=== PATIENT | female | born 1950 | race Caucasian/White ===

== ENCOUNTER 2020-01-24 12:58 | Emergency (ER) | payer MEDICARE, MEDICAID, SELFPAY ==
[2020-01-24 13:15] VITALS: BP 145/56; PULSE 77; RESP 16; TEMP 36.8; O2SAT 98
--- NOTE | 2020-01-24 14:27 | ED.URI ---
HPI - URI/Sore Throat General Chief Complaint: Upper Respiratory Infection Stated Complaint: Chest congestion/Cough Time Seen by Provider: 01/24/20 14:27 Source: patient Mode of arrival: ambulatory Limitations: no limitations History of Present Illness HPI Narrative: 69 year old female who presents to [facility] care with 3 day history of cough which is dry and some mid chest discomfort with cough. Patient denies any sore throat, ear pain, fevers or any acute shortness of breath or noted wheezing. Patient states that she has not taken any OTC medications for her cough, reports flu vaccine 2019. Patient states that she has had history of bronchitis and thinks that is what she may be experiencing. Patient has history of tobacco abuse of 1ppd for 40 years. MD elicited complaint: cough Pertinent past history: other (bronchitis, tobacco abuse) Onset (ago): day(s) Consistency: constant Severity: moderate Able to tolerate fluids by mouth: Yes Exacerbating factors: exertion and deep breaths Relieving factors: nothing Context: sick contacts Associated symptoms: cough and chest pain (mid chest with cough) Treatments prior to arrival: none Related Data Home Medications Medication Instructions Recorded Confirmed amlodipine 10 mg PO DAILY 01/24/20 01/24/20 atorvastatin 40 mg PO DAILY 01/24/20 01/24/20 carvedilol 6.25 mg PO BID 01/24/20 01/24/20 lisinopril 10 mg PO BID 01/24/20 01/24/20 metformin 1,000 mg PO BID 01/24/20 01/24/20 sertraline [Zoloft] 100 mg PO DAILY 01/24/20 01/24/20 Allergies Allergy/AdvReac Type Severity Reaction Status Date / Time Sulfa (Sulfonamide Allergy Rash Verified 01/24/20 13:27 Antibiotics) Review of Systems Review of Systems: Narrative: CONSTITUTIONAL: Denies fever, chills, or sweats. EYES: Denies visual changes, redness, or discharge. ENT: Denies rhinorrhea, congestion, sore throat, or otalgia. CARDIOVASCULAR: reports mid chest pain with cough, denies any palpitations, or edema. RESPIRATORY: Positive cough denies dyspnea. GASTROINTESTINAL: Denies abdominal pain, nausea, vomiting, or diarrhea. GENITOURINARY: Denies dysuria or hematuria. SKIN: Denies rash or itching. MUSCULOSKELETAL: Denies back pain, joint pain, or myalgia. NEUROLOGIC: Denies headache, numbness, or weakness. PSYCHIATRIC: Denies anxiety or depression. All systems reviewed & are unremarkable except as noted in HPI and below PMFSH Past Medical History Medical History (Updated 01/27/20 @ 12:09 by Ying Bond NP) Bronchitis Diabetes Fibroid uterus Hyperlipidemia Hypertension Surgical History Surgical History (Updated 01/27/20 @ 12:09 by Ying Bond NP) H/O: hysterectomy Social History Social History (Updated 01/27/20 @ 12:09 by Ying Bond NP) Smoking packs per day: 1 Smoking cigarettes per day: 20.0 Years smoked: 40 Smoking pack-years: 40.00 Smoking status: Current every day smoker Tobacco type: cigarettes Living arrangements: with family Gender identity (if verbalized by the patient): Female Comments At time of signature, agree with nursing past medical, surgical, social and family history. There is no relevant family history pertinent to the presenting complaint Exam Narrative: Exam Narrative: GENERAL: Well-appearing, well-nourished, and in no acute distress. HEAD: Normocephalic, atraumatic. EYES: PERRLA and EOMI. ENT: Nares clear, no rhinorrhea or epistaxis. Mucous membranes moist.TM's normal with adequate light reflex, throat pink with no lesions or exudates, no tonsil swelling or redness. NECK: Supple.no lymphadenopathy CHEST: Diminished to auscultation. No respiratory distress. dry cough, SAO2 98% on room air. HEART: Regular rate and rhythm. No murmur heard. Normal peripheral pulses. ABDOMEN: Soft, nontender, nondistended, normal active bowel sounds. EXTREMITIES: Normal range of motion. No edema. SKIN: Warm, dry, no rash. NEURO: No focal deficits. Alert and oriented x3.
== END 2020-01-24 14:46 | disposition home or self-care (01) ==
PROVIDERS: Emergency Provider Registered Nurse
DX: J06.9 Acute upper respiratory infection, unspecified (principal); E11.9 Type 2 diabetes mellitus without complications; E78.5 Hyperlipidemia, unspecified; I10 Essential (primary) hypertension; F17.210 Nicotine dependence, cigarettes, uncomplicated
CPT/HCPCS: 99203; G0463

== ENCOUNTER 2023-02-13 17:19 | Emergency (ER) | payer MEDICARE, MEDICAID, SELFPAY ==
--- NOTE | 2023-02-13 17:21 | ED.SKABFB ---
HPI - Skin/Abscess/Foreign Bdy General Chief complaint: Skin/Abscess/Foreign Body Stated complaint: Skin Sore Time Seen by Provider: 02/13/23 17:21 Source: patient and RN notes reviewed History of Present Illness HPI narrative: Patient is a 72-year-old female presents to urgent care with complaints of a skin sore on her back as well as a cough and sinus congestion. Patient states that the cough has been ongoing for approximately 1 week in conjunction with the sinus congestion. Patient has been taking DayQuil, NyQuil and using cough drops. States that the sore in her back is been there for approximately 2 weeks and she has been using Neosporin. Patient states her has squeezed on the abscess. Denies any fevers above 99 F, nausea vomiting. No other acute complaints. No acute distress noted. Patient aware of the plan care. Some parts of this dictation were generated by voice recognition software and may contain typographical and/or grammatical inaccuracies. Related Data Home Medications Medication Instructions Recorded Confirmed carvedilol 6.25 mg tablet 6.25 mg PO BID 01/24/20 02/13/23 lisinopril 10 mg tablet 10 mg PO BID 01/24/20 02/13/23 atorvastatin 80 mg tablet 80 mg PO DIRECTED 02/13/23 02/13/23 insulin regular hum U-500 conc 500 230 unit subcut DIRECTED 02/13/23 02/13/23 unit/mL(3 mL) subcut pen (Humulin R U-500 (Conc) Insulin Kwikpen) lisinopril 20 tablet 02/13/23 mg-hydrochlorothiazide 12.5 mg tablet venlafaxine 150 mg 150 mg PO DIRECTED 02/13/23 02/13/23 capsule,extended release 24 hr Allergies Allergy/AdvReac Type Severity Reaction Status Date / Time Sulfa (Sulfonamide Allergy Rash Verified 02/13/23 17:36 Antibiotics) Review of Systems Review of Systems: CONSTITUTIONAL: Denies fever, chills, or sweats. EYES: Denies visual changes, redness, or discharge. ENT: Reports rhinorrhea, sinus congestion postnasal drainage CARDIOVASCULAR: Denies chest pain, palpitations, or edema. RESPIRATORY: Reports cough without dyspnea GASTROINTESTINAL: Denies abdominal pain, nausea, vomiting, or diarrhea. GENITOURINARY: Denies dysuria or hematuria. SKIN: Reports of a skin sore to the back MUSCULOSKELETAL: Denies back pain, joint pain, or myalgia. NEUROLOGIC: Denies headache, numbness, or weakness. PSYCHIATRIC: Denies anxiety or depression. All other systems reviewed are negative, except as documented in HPI. [facility] Past Medical History Medical History (Updated 02/13/23 @ 17:52 by JORGE Ulloa) Bronchitis Diabetes Fibroid uterus Hyperlipidemia Hypertension Surgical History Surgical History (Updated 01/27/20 @ 12:09 by Ying Bond NP) H/O: hysterectomy Social History Social History (Updated 01/27/20 @ 12:09 by Ying Bond NP) Smoking packs per day: 1 Smoking cigarettes per day: 20.0 Years smoked: 40 Smoking pack-years: 40.00 Smoking status: Current every day smoker Tobacco type: cigarettes Living arrangements: with family Gender identity (if verbalized by the patient): Female Comments At the time of my signature, I reviewed and agree with the nursing past medical, surgical, social, and family history. There is no relevant family history pertinent to the patient complaint. Exam Narrative: GENERAL: This is a well-nourished, well-developed patient, in no apparent distress. HEAD: normocephalic, atraumatic. Reported frontal sinus tenderness EYES: PERRL. Sclera clear/white. Vision is grossly intact. EARS: External ears normal, auditory canals clear and without drainage, TMs normal without perforation. Hearing grossly intact. NOSE: External nose normal with no obvious nasal discharge, nares without redness, clear rhinorrhea. THROAT: Mucous membranes moist, posterior pharynx clear. Moderate postnasal drainage NECK: Neck supple CARDIOVASCULAR: Regular rate and rhythm RESPIRATORY: Clear to auscultation. Breath sounds equal bilaterally. No
[2023-02-13 17:28] VITALS: BP 150/61; PULSE 91; RESP 20; TEMP 36.3; O2SAT 99
== END 2023-02-13 17:55 | disposition home or self-care (01) ==
PROVIDERS: Emergency Provider Nurse Practitioner Family; PCP Internal Medicine
DX: L02.212 Cutaneous abscess of back [any part, except buttock and flank] (principal); J00 Acute nasopharyngitis [common cold]; F17.210 Nicotine dependence, cigarettes, uncomplicated; E11.9 Type 2 diabetes mellitus without complications; Z79.4 Long term (current) use of insulin; E78.5 Hyperlipidemia, unspecified; I10 Essential (primary) hypertension
CPT/HCPCS: 99213; G0463

== ENCOUNTER 2024-10-24 15:23 | Emergency (ER) | payer MEDICARE, SELFPAY ==
--- NOTE | ~2024-10-24 | XR_ITS ---
XR chest 2V 10/24/2024 16:49 Indication: Pneumonia Procedure: 2 view chest Comparison: No prior studies for comparison. Findings: Heart size normal. No focal air space disease, pulmonary edema, pleural effusion or suspect ed pneumothorax. There is dextroscoliosis. Impression: 1: No acute cardiopulmonary disease. Reviewed, dictated and finalized at location B. AL SALES EXECUTIVE Impression: 1: No acute cardiopulmonary disease.
--- OUTSIDE RECORDS SUMMARY | 2024-10-24 15:26 | XMS_ITS ---
Author Organization [facility] Address [address] [place] [address] Phone Care Team Providers Care Pneumatic Tube Fitter Name Role Phone RUTH AUGUSTINE MD Primary Care Provider [phone] Plan of Treatment Referrals To [facility] - [address] [place] [address] - Spondylosis w/o myelopathy or radiculopathy, lumbar region Note: consent for bilateral L3, L,4 L5 medial branch blocks Last Documented On 4 10:07AM ; [facility] Assessments Includes: Assessments for all patient encounters Findings Encounter Date Arthralgia of bilateral shou lder region PAIN MANAGEMENT NEW CONSULT with SERGE PARNELL ANP-BC 07/04/2022 Last Documented On 2 5:14PM ; [facility] Arthralgia of the left knee/patella/tibia/fibula PAIN MANAGEMENT NEW CONSULT with SERGELEW PARNELL ANP-BC 07/04/2022 Last Documented On 2 5:14PM ; [facility] Chronic pain syndrome PAIN MANAGEMENT NE W CONSULT with SERGELEW PARNELL ANP-BC 07/04/2022 Last Documented On 2 5:14PM ; [facility] Lumbar spondylosis without m yelopathy or radiculopathy PAIN MANAGEMENT NEW CONSULT with SERGE Arthur GEES ANP-BC 07/04/2022 Last Documented On 2 5:14PM ; [facility] Myalgia PAIN MANAGEMENT NEW CONSULT with SERGE Arthur GEES ANP-BC 07/04/2022 Last Documented On 2 5:14PM ; [facility] Polyarthropathy of multiple sites PAIN M ANAGEMENT NEW CONSULT with SERGE JARRELL 07/04/2022 Last Documented On 2 5:14PM ; [facility] Type 2 diabetes with diabeti c polyneuropathy PAIN MANAGEMENT [facility] Last Documented On 2 5:14PM ; [facility] Medical Equipment - Implanted Devices Includes: Current and historical Devices No Medical Equipment Recorded Medications Includes: Current and historical Medications Current Medications (continue as prescribed) Pregabalin 100 MG Oral Capsule 07/04/2022 Provider: SERGE JARRELL Diagnosis: Type 2 diabetes mellitus with diabetic polyneuropathy 1 CAPSULE TWO TIMES A DAY Last Documented On 2 3:21PM [facility] ; [facility] Venlafaxine HCl ER 150 MG Or al Capsule Extended Release 24 Hour 06/17/2022 Provider: FREDI MEDEROS NP Diagnosis: Last Documented On 07/04/2022 2:09PM By Brenda SALDANA ; [facility] HumuLIN R U-500 KwikPen 500 UNIT/ML Subcutaneous Solution Pen-injector 06/06/2022 Provider: YESIKA NELSON MD Diagnosis: Last Documented On 07/04/2022 2:10PM By Brenda SALDANA ; [facility] TRUEplus Pen [place] 32G X 4 MM Miscellaneous 04/30/20 Provider: YESIKA NELSON MD Diagnosis: Last Documented On 07/04/2022 2:10PM By Brenda SALDANA ; [facility] Atorvastatin Calcium 80 MG Oral Tablet 04/07/2022 Pr ovider: RUTH AUGUSTINE MD Diagnosis: Last Documented On 07/04/2022 2:10PM By Brenda SALDANA ; [facility] Lisinopril-hydroCHLOROthiazi de 20-12.5 MG Oral Tablet 04/07/2022 Provider: RUTH AUGUSTINE MD Diagnosis: Last Documented On 07/04/2022 2:10PM By Brenda SALDANA ; [facility] amLODIPine Besylate 10 MG Oral Tablet 04/06/2022 Pro vider: RUTH AUGUSTINE MD Diagnosis: Last Documented On 07/04/2022 2:10PM By Brenda SALDANA ; [facility] Ventolin HFA 108 (90 Base) M CG/ACT Inhalation Aerosol Solution 03/31/2022 Provider: RUTH AUGUSTINE MD Diagnosis: Last Documented On 07/04/2022 2:10PM By Brenda SALDANA ; [facility] Pregabalin 50 MG Oral Capsule 03/24/2022 Provider: YESIKA NELSON MD Diagnosis: Last Documented On 07/04/2022 2:11PM By Brenda SALDANA ; [facility] Medications Administered Includes: Administered Medications in patient's chart No Administered Medications Recorded Results Includes: Results from 10/24/2023 through 10/24/2024 No Results Recorded For Specified Dates History of Present Illness History of Present Illness not supported for this document type No History of Present Illness Recorded Social History Description Last Updated Difficulty walking 07/04/2022 Last Documented On 2 5:14PM ; [facility] No consumption of alcohol 07/04/2022 Last Documented On 2 5:14PM ; [facility] Not using drugs 07/04/2022 Last Documented On 2 5:14PM ; [facility] Smoking packs of cigarettes per day One 07/04/2022 Last Documented On 2 5:14PM ; [facility] Smoking Status Unknown Medical History Includes: Medical History in patient's chart Description Last Updated Currently wearing eyeglasses 07/04/2022 Last Documented On 2 5:14PM ; [facility] Severe Pain 07/04/2022 Last Documented On 2 5:14PM ; [facility] Family History Includes: Family History in patient's chart Description Last Updated Paternal history of family history of is chemic heart disease 07/04/2022 Last Documented On 2 5:14PM ; [facility] Review of Systems Review of Systems not supported for this document type No Review of Systems Recorded Mental Status No Mental Status Recorded Functional Status No Functional Status Recorded Physical Exam Physical Exam not supported for this document type No Physical Exam Recorded Allergies Includes: Active, inactive, and resolved Allergies Substance Type Reaction Onset Date Resolved Date Statu s Sulfa Antibiotics Allergy 07/04/2022 A ctive Last Documented On 2 2:12PM ; [facility] Insurance Includes: Active Insurance Policies Plan Name Member ID Group # Subscriber Relationship Effect cecile Dates 1 - [facility] [id number] REID PEDRO Self Clinical Notes Includes: Signed Clinical Notes starting from 12/02/2022 No Clinical Notes Recorded
--- OUTSIDE RECORDS SUMMARY | 2024-10-24 15:26 | XMS_ITS | Clinical Summary ---
Author Organization [facility] Address [address] [place] [address] Phone Care Team Providers Care Aerodynamic Consultant Name Role Phone RUTH AUGUSTINE MD Primary Care Provider [phone] Reason for Visit and Chief Complaint The Chief Complaint is: REFERRED BY RUTH AUGUSTINE FOR Polyosteoarthritis Plan of Treatment Referrals To Diagnosis Pain Management [facility] - [address] [place] [address] - Spondylosis w/o myelopathy or radiculopathy, lumbar region Note: consent for bilateral L3, L,4 L5 medial branch blocks Last Documented On 10:07AM ; [facility] Assessments Includes: Assessments from this encounter Findings - Type 2 diabetes with diabetic polyneuropathy [E11.42 - Type 2 diabetes mellitus with diabetic polyneuropathy] - Last Documented On 07/04/2022 5:14PM ; [facility] - Polyarthropathy of multiple sites [M13.0 - Polyarthritis, unspecified] - Last Documented On 07/04/2022 5:14PM ; [facility] - Arthralgia of bilateral shoulder region [M25.519 - Pain in unspecified shoulder] - Last Documented On 07/04/2022 5:14PM ; [facility] - Arthralgia of the left knee/patella/tibia/fibula [M25.562 - Pain in left knee] - Last Documented On 07/04/2022 5:14PM ; [facility] - Lumbar spondylosis without myelopathy or radiculopathy [M47.816 - Spondylosis without myelopathy or radiculopathy, lumbar region] - Last Documented On 07/04/2022 5:14PM ; [facility] - Myalgia [M79.18 - Myalgia, other site] - Last Documented On 07/04/2022 5:14PM ; [facility] - Chronic pain syndrome [G89.4 - Chronic pain syndrome] - Last Documented On 07/04/2022 5:14PM ; [facility] Medical Equipment - Implanted Devices Includes: Current Devices No Medical Equipment Recorded Medications Includes: Medications discussed during this encounter and other current Medications New / Renewed during this visit SERGE ASHLEY on 07/04/2022 Pregabalin 100 MG Oral Capsule Provider: SERGE ASHLEY 30 day supply: 60 capsule, 0 refills Diagnosis: Type 2 diabetes mellitus with diabetic polyneuropathy 1 CAPSULE TWO TIMES A DAY Pharmacy: Enrique HarrellJoseph) - [facility] [address] [place], [phone] - Last Documented On 3:21PM By SERGE ASHLEY ; [facility] Current Medications (continue as prescribed) Venlafaxine HCl ER 150 MG Or al Capsule Extended Release 24 Hour 06/17/2022 Provider: FREDI MEDEROS NP Diagnosis: Last Documented On 07/04/2022 2:09PM By Brenda SALDANA ; [facility] HumuLIN R U-500 KwikPen 500 UNIT/ML Subcutaneous Solution Pen-injector 06/06/2022 Provider: YESIKA NELSON MD Diagnosis: Last Documented On 07/04/2022 2:10PM By Brenda SALDANA ; [facility] TRUEplus Pen [place] 32G X 4 MM Miscellaneous 04/30/20 Provider: YESIKA NELSON MD Diagnosis: Last Documented On 07/04/2022 2:10PM By Brenda SALDANA ; [facility] Atorvastatin Calcium 80 MG Oral Tablet 04/07/2022 Pr ovider: RUTH AUGUSTINE MD Diagnosis: Last Documented On 07/04/2022 2:10PM By Brenda SALDANA ; [facility] Lisinopril-hydroCHLOROthiazi de 20-12.5 MG Oral Tablet 04/07/2022 Provider: RUTH AUGUSTINE MD Diagnosis: Last Documented On 07/04/2022 2:10PM By Brenda SALDANA ; [facility] amLODIPine Besylate 10 MG Oral Tablet 04/06/2022 Pro vider: RUTH AUGUSTINE MD Diagnosis: Last Documented On 07/04/2022 2:10PM By Brenda SALDANA ; [facility] Ventolin HFA 108 (90 Base) M CG/ACT Inhalation Aerosol Solution 03/31/2022 Provider: RUTH AUGUSTINE MD Diagnosis: Last Documented On 07/04/2022 2:10PM By Brenda SALDANA ; [facility] Pregabalin 50 MG Oral Capsule 03/24/2022 Provider: YESIKA NELSON MD Diagnosis: Last Documented On 07/04/2022 2:11PM By Brenda SALDANA ; [facility] Medications Administered Includes: Administered Medications from this encounter No Administered Medications Recorded Vital Signs Includes: Vital Signs from this encounter Vital Name 07/04/2022 02:05P Blood Pressure Sitting L 118/60 Pulse Rate-Sitting (bpm) 74 Temp-Tympanic (F) 96.2 Height (in) 67 Weight (lb) 242 Body Mass Index (kg/m2) 37.9 Body Surface Area (m2) 2.2 Pain Level 9 Oxygen Saturation (%) 97 Last Documented: On 07/04/2022 2:09PM ; [facility] Results Includes: Results discussed during this encounter No Results Recorded For Specified Dates History of Present Illness Includes: History of Present Illness from this encounter HPI - Allergy list reviewed - Problem list reviewed - Medication reconciliation performed - Medication list reviewed - Prescription Drug Monitoring Program website checked. - Last dose of medication? - Pain comes/goes - Primary pain location Back legs neck - Primary pain duration All the time - Secondary pain duration All the time - Secondary pain location Knees ankles shoulders - Pain is throbbing - Pain is dull, aching - Relieved by leaning forward - Pain aggravated getting in/out of car - Pain aggravated going down stairs - Pain aggravated going up stairs - Pain aggravated sitting - Pain aggravated standing - Pain aggravated when out of chair - Pain aggravated by walking - Pain aggravated lifting - Pain aggravated bending - Pain radiating to both shoulders - Neck pain radiating to both sides - Abdominal pain radiates to both sides - Groin pain radiating to both sides - Pain radiates in both hands - Pain radiates to both forearms - Radiating pain in upper arms - Pain radiating in both thighs - Pain radiates in both calfs/shins - Pain radiates in both feet Discussion: Patient referred for chronic pain related to osteoarthritis. She complains of chronic low back pain, mainly axial in nature. This is worse with standing more than 5-10 minutes and improves with rest. She reports symptoms consistent with peripheral neuropathy in both the hands and feet. History of diabetes, reportedly not well controlled. She is under the care of an legislative analyst. She has polyarthropathy including the shoulders and knees, L>R. Right knee replaced in 2010 and is minimally painful. Shoulder pain is with overhead activity, not constant. She reports minimal treatment overall for pain. Therapy done briefly for shoulder pain, but stopped and she reports it wasn't helpful. She has not had treatment for other complaints other than previous prescription of hydrocodone. This was prescribed by pcp until about a year ago. Medication was discontinued due to an inappropriate drug screen (per patient account). She reports being out of pain medication and taking something a friend gave her. She states she would take extras from time to time when she was more active and pain was worse. We discussed dangers associated with this behavior. I will request drug screens from pcp office. At this time, I will not initiate pain medication. We discussed if this was to become part of the treatment plan, there would be strict monitoring and she must take only as prescribed and with no other pain medication. Any deviation from this would result in the same consequence she experienced with her pcp. However, at this time we will start with therapy and increase dose of pregabalin. She can increase tylenol to 1000mg tid. We will also treat the low back pain with a series of two MBB with progression to RF ablation based on response. I suggest she attempt therapy, but the amount of disability this pain is causing the patient requires treatment with more than physical therapy. 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 I have fully answered her questions today. Imaging: All relevant imaging available was personally reviewed with the patient today with the following tests and results noted: X-ray L spine 04/18/22: multilevel degenerative endplate changes of the lumbar spine. Prominent facet arthropathy at L3-4, L4-5 and L5-S1. Mild to moderate change at the other levels. Social History Description Last Updated Difficulty walking 07/04/2022 Last Documented On 2 5:14PM ; [facility] No consumption of alcohol 07/04/2022 Last Documented On 2 5:14PM ; [facility] Not using drugs 07/04/2022 Last Documented On 2 5:14PM ; [facility] Smoking packs of cigarettes per day One 07/04/2022 Last Documented On 2 5:14PM ; [facility] Smoking Status Unknown Procedures and Surgical History Includes: Procedures from this encounter Procedures Code Diagnosis Performing Provider Service L ocation Service Date use of tobacco assessment performed 1000F Last Documented On 2 2:30PM ; [facility] review of medications documented 1160F Last Documented On 2 1:26PM ; [facility] screening for adult depression: impressi on and score four Last Documented On 2 2:30PM ; [facility] standardized depression screening: posit cecile for symptoms Last Documented On 2 2:30PM ; [facility] Clinical summary provided to patient Last Documented On 2 1:26PM ; [facility] SOAPP-R: total score 20 Last Documented On 2 2:03PM ; [facility] Medical History Includes: Medical History addressed during this encounter Description Last Updated Currently wearing eyeglasses 07/04/2022 Last Documented On 2 5:14PM ; [facility] Severe Pain 07/04/2022 Last Documented On 2 5:14PM ; [facility] Family History Includes: Family History addressed during this encounter Description Last Updated Paternal history of family history of is chemic heart disease 07/04/2022 Last Documented On 2 5:14PM ; [facility] Review of Systems Includes: Review of Systems from this encounter Systemic: No systemic symptoms other than noted. In poor overall health. Head: No head symptoms other then noted. Neck: No neck pain. Otolaryngeal: No otolaryngeal symptoms other than noted. Tinnitus. Cardiovascular: No cardiovascular symptoms other than noted. Varicose veins. Pulmonary: No pulmonary symptoms other than noted. Gastrointestinal: No gastrointestinal symptoms other than noted. Genitourinary: No genitourinary symptoms other than noted. Urinary loss of control. Endocrine: No endocrine symptoms other than noted. Muscle weakness and Weakness. Hematologic: No easy bleeding and no tendency for easy bruising. Musculoskeletal: No musculoskeletal symptoms other than noted. Back pain, muscle aches, soft tissue swelling of a hand, of the foot, pain localized to one or more joints, and joint stiffness localized to one or more joints. Neurological: No neurological symptoms other than noted. Dizziness and dizziness. No fainting passing out with needles or medical procedures. Numbness. Psychological: No psychological symptoms other than noted. Skin: No skin symptoms other than noted. Dry skin and pruritus. Mental Status Includes: Mental Status from this encounter No Mental Status Recorded Functional Status Includes: Functional Status from this encounter No Functional Status Recorded Physical Exam Includes: Physical Exam from this encounter Allergies Includes: Active Allergies Substance Type Reaction Onset Date Resolved Date Statu s Sulfa Antibiotics Allergy 07/04/2022 A ctive Last Documented On 2 2:12PM ; [facility] Encounters Encounter Provider Location Date Check-In Time Check-Out Time Diagnosis PAIN MANAGEMENT NEW CONSULT SERGE PARNELL [facility] 07/04/20 22 2:01PM 3:10PM Type 2 Diabetes with Diabetic Polyneuropathy,C hronic Pain Syndrome,Spondyl osis Without Myelopathy Or Radiculopathy Lumbar Region,Myalgia , Other Site (M79.18),Polyart hropathy Multiple Sites,Arthralgia - Knee / Patella / Tibia / Fibula Left,Arthralgia - Shoulder Region Bilateral Insurance Includes: Active Insurance Policies Plan Name Member ID Group # Subscriber Relationship Effect cecile Dates 1 - [facility] [id number] REID PEDRO Self Clinical Notes Includes: Clinical Notes from this encounter No Clinical Notes Recorded
--- OUTSIDE RECORDS SUMMARY | 2024-10-24 15:26 | XMS_ITS ---
Care Plan - [facility] Created on: October 24, 2024 REID PEDRO : 1950 Sex: Female Author Organization [facility] Address [address] [place] [id number] Phone Care Team Providers Care Software Sales Consultant Name Role Phone RUTH AUGUSTINE MD Primary Care Provider [phone]
--- OUTSIDE RECORDS SUMMARY | 2024-10-24 15:29 | XMS_ITS ---
Care Plan - [facility] Created on: October 24, 2024 REID PEDRO : 1950 Sex: Female Author Organization [facility] Address [address] [place] [phone] Phone Care Team Providers Care Linux Network Administrator Name Role Phone RUTH AUGUSTINE MD Primary Care Provider [phone]
--- OUTSIDE RECORDS SUMMARY | 2024-10-24 15:29 | XMS_ITS ---
Author Organization [facility] [[email or web address] Address [address] [place] [address] Phone Care Team Providers Care Ruling Technician Name Role Phone RUTH AUGUSTINE MD Primary Care Provider [phone] Plan of Treatment Referrals To [facility] Pain Management [facility] - [address] [place] [address] - Spondylosis w/o myelopathy or radiculopathy, lumbar region Note: consent for bilateral L3, L,4 L5 medial branch blocks Last Documented On 4 10:07AM ; [facility] Assessments Includes: Assessments for all patient encounters Findings Encounter Date Arthralgia of bilateral shou lder region PAIN MANAGEMENT NEW CONSULT with SERGE PARNELL ANP[facility] 07/04/2022 Last Documented On 2 5:14PM ; [facility] Arthralgia of the left knee/patella/tibia/fibula PAIN MANAGEMENT NEW CONSULT with SERGELEW PARNELL ANP-[facility] 07/04/2022 Last Documented On 2 5:14PM ; [facility] Chronic pain syndrome PAIN MANAGEMENT NE W CONSULT with SERGELEW PARNELL ANP-[facility] 07/04/2022 Last Documented On 2 5:14PM ; [facility] Lumbar spondylosis without m yelopathy or radiculopathy PAIN MANAGEMENT NEW CONSULT with SERGE Arthur GEES [facility] 07/04/2022 Last Documented On 2 5:14PM ; [facility] Myalgia PAIN MANAGEMENT NEW CONSULT with SERGE Arthur GEES [facility]P-[facility] 07/04/2022 Last Documented On 2 5:14PM ; [facility] Polyarthropathy of multiple sites PAIN M ANAGEMENT NEW CONSULT with SERGE JARRELL 07/04/2022 Last Documented On 2 5:14PM ; [facility] Type 2 diabetes with diabeti c polyneuropathy PAIN MANAGEMENT NEW CONSULT with [facility] 07/04/2022 Last Documented On 2 5:14PM ; [facility] Medical Equipment - Implanted Devices Includes: Current and historical Devices No Medical Equipment Recorded Medications Includes: Current and historical Medications Current Medications (continue as prescribed) Pregabalin 100 MG Oral Capsule 07/04/2022 Provider: SERGE JARRELL Diagnosis: Type 2 diabetes mellitus with diabetic polyneuropathy 1 CAPSULE TWO TIMES A DAY Last Documented On 2 3:21PM By [facility] ; [facility] Venlafaxine HCl ER 150 MG Or al Capsule Extended Release 24 Hour 06/17/2022 Provider: FREDI MEDEROS NP Diagnosis: Last Documented On 07/04/2022 2:09PM By Brenda SALDANA ; [facility] HumuLIN R U-500 KwikPen 500 UNIT/ML Subcutaneous Solution Pen-injector 06/06/2022 Provider: YESIKA NELSON MD Diagnosis: Last Documented On 07/04/2022 2:10PM By Brenda SALDANA ; [facility] TRUEplus Pen [place] 32G X 4 MM Miscellaneous 04/30/20 Provider: YESIKA NELSON MD Diagnosis: Last Documented On 07/04/2022 2:10PM By Brenda SALDANA ; [facility] Atorvastatin Calcium 80 MG Oral Tablet 04/07/2022 Pr ovider: RUTH AUGUSTINE MD Diagnosis: Last Documented On 07/04/2022 2:10PM By Brenda SALDANA ; [facility] Lisinopril-hydroCHLOROthiazi de 20-12.5 MG Oral Tablet 04/07/2022 Provider: RUTH AUGUSTINE MD Diagnosis: Last Documented On 07/04/2022 2:10PM By Brenda SALDANA ; [facility] amLODIPine Besylate 10 MG Oral Tablet 04/06/2022 Pro vider: RUTH AUGUSTINE MD Diagnosis: Last Documented On 07/04/2022 2:10PM By Brenda SALDANA ; [facility] Ventolin HFA 108 (90 Base) M CG/ACT Inhalation Aerosol Solution 03/31/2022 Provider: RUTH AUGUSTINE MD Diagnosis: Last Documented On 07/04/2022 2:10PM By Brenda SALDANA ; [facility] Pregabalin 50 MG Oral Capsule 03/24/2022 Provider: YESIKA NELSON MD Diagnosis: Last Documented On 07/04/2022 2:11PM By Brenda SALDANA ; [facility] Medications Administered Includes: Administered Medications in patient's chart No Administered Medications Recorded Results Includes: Results from 10/24/2023 through 10/24/2024 No Results Recorded For Specified Dates History of Present Illness History of Present Illness not supported for this document type No History of Present Illness Recorded Social History Description Last Updated Difficulty walking 07/04/2022 Last Documented On 2 5:14PM ; [facility] No consumption of alcohol 07/04/2022 Last Documented On 2 5:14PM ; [facility] Not using drugs 07/04/2022 Last Documented On 2 5:14PM ; [facility] Smoking packs of cigarettes per day One 07/04/2022 Last Documented On 2 5:14PM ; [facility] Smoking Status Unknown Medical History Includes: Medical History in patient's chart Description Last Updated Currently wearing eyeglasses 07/04/2022 Last Documented On 2 5:14PM ; [facility] Severe Pain 07/04/2022 Last Documented On 2 5:14PM ; [facility] Family History Includes: Family History in patient's chart Description Last Updated Paternal history of family history of is chemic heart disease 07/04/2022 Last Documented On 2 5:14PM ; [facility] Review of Systems Review of Systems not [...] ctive Last Documented On 2 2:12PM ; [facility] Insurance Includes: Active Insurance Policies Plan Name Member ID Group # Subscriber Relationship Effect cecile Dates 1 - [facility] [id number] REID PEDRO Self Clinical Notes Includes: Signed Clinical Notes starting from 12/02/2022 No Clinical Notes Recorded
--- OUTSIDE RECORDS SUMMARY | 2024-10-24 15:29 | XMS_ITS | Clinical Summary ---
Author Organization [facility] Address [address] [place] [address] Phone Care Team Providers Care Etiquette Coach Name Role Phone RUTH AUGUSTINE MD Primary Care Provider [phone] Reason for Visit and Chief Complaint The Chief Complaint is: REFERRED BY RUTH AUGUSTINE FOR Polyosteoarthritis Plan of Treatment Referrals To Diagnosis Pain Management [facility] - [address] [place] [address] - Spondylosis w/o myelopathy or radiculopathy, lumbar region Note: consent for bilateral L3, L,4 L5 medial branch blocks Last Documented On 10:07AM ; [facility] Assessments Includes: Assessments from this encounter Findings - Type 2 diabetes with diabetic polyneuropathy [E11.42 - Type 2 diabetes mellitus with diabetic polyneuropathy] - Last Documented On 07/04/2022 5:14PM ; [facility] - Polyarthropathy of multiple sites [M13.0 - Polyarthritis, unspecified] - Last Documented On 07/04/2022 5:14PM ; [facility] - Arthralgia of bilateral shoulder region [M25.519 - Pain in unspecified shoulder] - Last Documented On 07/04/2022 5:14PM ; [facility] - Arthralgia of the left knee/patella/tibia/fibula [M25.562 - Pain in left knee] - Last Documented On 07/04/2022 5:14PM ; [facility] - Lumbar spondylosis without myelopathy or radiculopathy [M47.816 - Spondylosis without myelopathy or radiculopathy, lumbar region] - Last Documented On 07/04/2022 5:14PM ; [facility] - Myalgia [M79.18 - Myalgia, other site] - Last Documented On 07/04/2022 5:14PM ; [facility] - Chronic pain syndrome [G89.4 - Chronic pain syndrome] - Last Documented On 07/04/2022 5:14PM ; [facility] Medical Equipment - Implanted Devices Includes: [...] TIMES A DAY Pharmacy: Enrique HarrellJoseph) - [facility] [address] [place], [phone] - Last Documented On 3:21PM By SERGE ASHLEY ; [facility] Current Medications (continue as prescribed) Venlafaxine HCl ER 150 MG Or al Capsule Extended Release 24 Hour 06/17/2022 Provider: FREDI MEDEROS NP Diagnosis: Last Documented On 07/04/2022 2:09PM By Brenda SADLANA ; [facility] HumuLIN R U-500 KwikPen 500 UNIT/ML Subcutaneous Solution Pen-injector 06/06/2022 Provider: YESIKA NELSON MD Diagnosis: Last Documented On 07/04/2022 2:10PM By Brenda SALDANA ; [facility] TRUEplus Pen [place] 32G X 4 MM Miscellaneous 04/30/20 Provider: YESIKA NELSON MD Diagnosis: Last Documented On 07/04/2022 2:10PM By Brenda SALDANA ; [facility] Atorvastatin Calcium 80 MG Oral Tablet 04/07/2022 Pr ovider: RUTH AUGUSTINE MD Diagnosis: Last Documented On 07/04/2022 2:10PM By Brenda SALDANA ; [facility] Lisinopril-hydroCHLOROthiazi de 20-12.5 MG Oral Tablet 04/07/2022 Provider: RUTH AUGUSTINE MD Diagnosis: Last Documented On 07/04/2022 2:10PM By Brenda SALDANA ; [facility] amLODIPine Besylate 10 MG Oral Tablet 04/06/2022 Pro vider: RUTH AUGUSTINE MD Diagnosis: Last Documented On 07/04/2022 2:10PM By Brenda SALDANA ; [facility] Ventolin HFA 108 (90 Base) M CG/ACT Inhalation Aerosol Solution 03/31/2022 Provider: RUTH AUGUSTINE MD Diagnosis: Last Documented On 07/04/2022 2:10PM By Brenda SALDANA ; [facility] Pregabalin 50 MG Oral Capsule 03/24/2022 Provider: YESIKA NELSON MD Diagnosis: Last Documented On 07/04/2022 2:11PM By Brenda SALDANA ; [facility] Medications Administered Includes: Administered Medications [...] 97 Last Documented: On 07/04/2022 2:09PM ; [facility] Results Includes: Results discussed during this encounter [...] She is under the care of an state pilot. She has polyarthropathy including the shoulders and [...] more than physical therapy. 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 [...] 07/04/2022 Last Documented On 2 5:14PM ; [facility] No consumption of alcohol 07/04/2022 Last Documented On 2 5:14PM ; [facility] Not using drugs 07/04/2022 Last Documented On 2 5:14PM ; [facility] Smoking packs of cigarettes per day One 07/04/2022 Last Documented On 2 5:14PM ; [facility] Smoking Status Unknown Procedures and Surgical History Includes: Procedures from this encounter Procedures Code Diagnosis Performing Provider Service L ocation Service Date use of tobacco assessment performed 1000F Last Documented On 2 2:30PM ; [facility] review of medications documented 1160F Last Documented On 2 1:26PM ; [facility] screening for adult depression: impressi on and score four Last Documented On 2 2:30PM ; [facility] standardized depression screening: posit cecile for symptoms Last Documented On 2 2:30PM ; [facility] Clinical summary provided to patient Last Documented On 2 1:26PM ; [facility] SOAPP-R: total score 20 Last Documented On 2 2:03PM ; [facility] Medical History Includes: Medical History addressed during this encounter Description Last Updated Currently wearing eyeglasses 07/04/2022 Last Documented On 2 5:14PM ; [facility] Severe Pain 07/04/2022 Last Documented On 2 5:14PM ; [facility] Family History Includes: Family History addressed during this encounter Description Last Updated Paternal history of family history of is chemic heart disease 07/04/2022 Last Documented On 2 5:14PM ; [facility] Review of Systems Includes: Review of [...] ctive Last Documented On 2 2:12PM ; [facility] Encounters Encounter Provider Location Date Check-In Time Check-Out Time Diagnosis PAIN MANAGEMENT NEW CONSULT [facility] 07/04/20 22 2:01PM 3:10PM Type 2 Diabetes with Diabetic Polyneuropathy,C hronic Pain Syndrome,Spondyl osis Without Myelopathy Or Radiculopathy Lumbar Region,Myalgia , Other Site (M79.18),Polyart hropathy Multiple Sites,Arthralgia - Knee / Patella / Tibia / Fibula Left,Arthralgia - Shoulder Region Bilateral Insurance Includes: Active Insurance Policies Plan Name Member ID Group # Subscriber Relationship Effect cecile Dates 1 - [facility] [id number] REID PEDRO Self Clinical Notes Includes: Clinical Notes from this encounter No Clinical Notes Recorded
[2024-10-24 15:46] VITALS: BP 143/56; PULSE 75; RESP 15; TEMP 36.6; O2SAT 99
--- NOTE | 2024-10-24 15:58 | ED_ITS ---
HPI - General Adult General Chief complaint: Upper Respiratory Infection Stated complaint: Shortness of Breath/Cough/Chest Pain Time Seen by Provider: 10/24/24 16:00 Source: patient, RN notes reviewed and old records reviewed Mode of arrival: ambulatory Limitations: no limitations History of Present Illness HPI narrative: 74 year old female who presents to express care with complaints of having some cough, occasional shortness of breath, and concern since recent pneumonia diagnosis 3 weeks ago and cellulitis of her left arm. Patient reports that she was diagnosed with right lower lobe pneumonia three weeks ago and took Azithromycin and Cefdinir for treatment. Patient reports that she is suppose to have skin cancer removed from her face next week and she needs to have COVID and FLU test done and some labs prior to having procedure since she has had recent illness. Patient reports that she continues to have some cough and shortness of breath with exertion,patient does use tobacco daily. Patient reports that she has been taking Mucinex and also has been taking DayQuil for her symptoms. Patient reports that she will call her PCP and see if she can get rest of labs done as outpatient. MD complaint: recent pneumonia,cough with some shortness of breath Onset (ago): day(s) (3-4 days) Severity: mild Exacerbating factors: movement Treatments prior to arrival: other (completed antibiotics presently taking Mucinex and DayQuil) Related Data Home Medications ?Medication ?Instructions ?Recorded ?Confirmed ?Last Taken ?Type carvedilol 6.25 mg tablet 6.25 mg PO BID 01/24/20 10/24/24 Unknown History lisinopril 10 mg tablet 10 mg PO BID 01/24/20 10/24/24 Unknown History atorvastatin 80 mg tablet 80 mg PO DIRECTED 02/13/23 10/24/24 Unknown History insulin regular hum U-500 conc 500 230 unit subcut DIRECTED 02/13/23 10/24/24 Unknown History unit/mL(3 mL) subcut pen (Humulin R U-500 (Conc) Insulin Kwikpen) lisinopril 20 tablet 02/13/23 Unknown History mg-hydrochlorothiazide 12.5 mg tablet venlafaxine 150 mg 150 mg PO DIRECTED 02/13/23 10/24/24 Unknown History capsule,extended release 24 hr albuterol sulfate 90 mcg/actuation inhalation 10/24/24 Unknown History aerosol inhaler amlodipine 10 mg tablet mg 10/24/24 Unknown History carvedilol 25 mg tablet mg 10/24/24 Unknown History citalopram 20 mg tablet mg 10/24/24 Unknown History gabapentin 100 mg capsule mg 10/24/24 Unknown History hydrocodone 7.5 mg-acetaminophen tablet 10/24/24 Unknown History 325 mg tablet omeprazole 40 mg capsule,delayed mg 10/24/24 Unknown History release Allergies Allergy/AdvReac Type Severity Reaction Status Date / Time Sulfa (Sulfonamide Allergy Rash Verified 10/24/24 15:40 Antibiotics) Review of Systems Review of Systems: CONSTITUTIONAL: Denies malaise, chills, sweats, or any recent fever. EYES: Denies visual changes, redness, or discharge. ENT: Reports rhinorrhea, congestion, no sinus pain,no otalgia and no sore throat. CARDIOVASCULAR: Denies chest pain, palpitations, or edema. RESPIRATORY: Reports cough.? Reports dyspnea with exertion. GASTROINTESTINAL: Denies abdominal pain, nausea, vomiting, diarrhea SKIN: Denies rash or itching. MUSCULOSKELETAL: Denies myalgia. NEUROLOGIC: Denies headache. All systems reviewed & are unremarkable except as noted in HPI and below PMFSH Past Medical History Medical History Fibroid uterus Bronchitis Diabetes Hyperlipidemia Hypertension Surgical History Surgical History H/O: hysterectomy Social History Social History Smoking packs per day: 1 Smoking cigarettes per day: 20.0 Years smoked: 40 Smoking pack-years: 40.00 Smoking status: Current every day smoker Tobacco type: cigarettes Living arrangements: with family Gender identity (if verbalized by the patient): Female Comments At time of signature, agree with nursing past medical, surgical, social and family history. There is no relevant family history pertinent to the presenting complaint Exam Narrative: GENERAL:chronic ill-appearing, well-nourished, and in no acute distress. HEAD: Normocephalic EYES: PERRLA, conjunctivae clear ENT: Nares clear, turbinates edematous and erythematous, clear discharge. Mucous membranes moist. TM pearly talavera with dull light reflex bilaterally; no tragal tenderness. Oropharynx erythematous without lesions. Tonsils not enlarged and without exudate, no drooling, no hoarseness, no trismus, uvula midline. NECK: Supple. No lymphadenopathy CHEST: Decreased to auscultation, breath sounds equal. No wheezing, rhonchi, rales, or stridor. No respiratory distress, speaks in full sentences.no tachypnea, cough noted SAO2 99% on room air HEART: Regular rate and rhythm. No murmur heard. SKIN: Warm, dry, no rash. NEURO: Alert and oriented x3. PSYCH: Normal mood and affect Course Course Emergency Course: Patient is aware of diagnosis, understands and agrees to treatment plan.? Anticipatory guidance given.? Patient agrees to follow-up as directed and is aware of reasons to seek care at the emergency department. Portions of this record may have been created with voice recognition software Level of Care: Express Care Visit Vital Signs Vital signs: Vital Signs Temperature 36.6 C 10/24/24 15:46 Pulse Rate 75 10/24/24 15:46 Respiratory Rate 15 10/24/24 15:46 Blood Pressure 143/56 H 10/24/24 15:46 Pulse Oximetry 99 10/24/24 15:46 Oxygen Delivery Room Air 10/24/24 15:46 Temperature 36.6 C 10/24/24 15:46 Pulse Rate 75 10/24/24 15:46 Respiratory Rate 15 10/24/24 15:46 Blood Pressure 143/56 H 10/24/24 15:46 Pulse Oximetry 99 10/24/24 15:46 Oxygen Delivery Room Air 10/24/24 15:46 Reviewed Medical Decision Making Differential Diagnosis Differential Diagnosis: URI, acute cough, recent pneumonia, shortness of breath with exertion Medical Records Medical records reviewed: Yes I reviewed the external patient's medical records. Vital Signs Vital Signs: Vital Signs Temperature 36.6 C 10/24/24 15:46 Pulse Rate 75 10/24/24 15:46 Respiratory Rate 15 10/24/24 15:46 Blood Pressure 143/56 H 10/24/24 15:46 Pulse Oximetry 99 10/24/24 15:46 Oxygen Delivery Room Air 10/24/24 15:46 Temperature 36.6 C 10/24/24 15:46 Pulse Rate 75 10/24/24 15:46 Respiratory Rate 15 10/24/24 15:46 Blood Pressure 143/56 H 10/24/24 15:46 Pulse Oximetry 99 10/24/24 15:46 Oxygen Delivery Room Air 10/24/24 15:46 reviewed Lab Data Lab results reviewed: Yes I reviewed the patient's lab results. Lab results narrative: Influenza A negative Influenza B negative, COVID antigen negative. Labs: Lab Results 10/24/24 10/24/24 Range/Units 16:08 16:11 POC Influenza A Ag Negative Negative (Negative) POC Influenza B Ag Negative Negative (Negative) POC SARS CoV-2 Ag Negative Negative (Negative) Imaging Data Attestation: I personally reviewed and interpreted this imaging study as follows: My impression: no acute cardiopulmonary disease Radiologist's impression: [place] [address] XRay Report Signed Patient: Fiona Diehl : 1950 MR#: [id number] Age: 74 Acct:[id number] Loc: [facility] ADM Date: 10/24/24Attending Dr: Ordering Physician: Ying Bond APRN Date of Service: 10/24/24 Procedure(s): XR chest 2V Accession Number(s): [id number] cc: Pantera, Neri Dior MD; Ying Bond STATE EDITOR~ XR chest 2V 10/24/2024 16:49 Indication: Pneumonia Procedure: 2 view chest Comparison: No prior studies for comparison. Findings: Heart size normal. No focal air space disease, pulmonary edema, pleural effusion or suspected pneumothorax. There is dextroscoliosis. Impression: 1: No acute cardiopulmonary disease. Reviewed, dictated and finalized at location B. IAC CATH LAB TECHNOLOGIST Dictated By: Tyler Mccoy MD 10/24/24 1650 Signed By: <Electronically signed by Tyler Mccoy MD in OV> Critical Care Time Critical Care Time Critical Care Time: No Discharge Plan Discharge Clinical Impression: Cough in adult Patient Disposition: Home, Self-Care Condition: Stable Instructions: Acute Cough (ED) Additional Instructions: Increase fluids especially juices and water [id number] cough and cold medicine of your choice for your symptoms Tylenol or ibuprofen for any fever pain Continue your inhaler/nebulizer as directed Zyrtec Claritin or Shakira daily heat to the face 20-30 minutes 4-6 times a day for pain Salt water gargles, throat lozenges or throat sprays as desired Stop smoking If your symptoms persist, change or worsen significantly before you can contact your personal physician then please, without delay, go to the emergency department for further evaluation. Follow-up with PCP in 7-10 days or sooner if needed Follow up with PCP soon in regards to your blood pressure which is elevated above threshold for referral. Blood pressure above 120/80 may indicate pre- hypertension.143/56 Patient Language: Guatemalan Prescriptions: No Action carvedilol 25 mg tablet omeprazole 40 mg capsule,delayed release(DR/EC) citalopram 20 mg tablet amlodipine 10 mg tablet hydrocodone-acetaminophen 7.5-325 mg tablet gabapentin 100 mg capsule albuterol sulfate 90 mcg/actuation HFA aerosol inhaler INHALATION carvedilol 6.25 mg Tablet 6.25 mg PO BID lisinopril 10 mg Tablet 10 mg PO BID atorvastatin 80 mg tablet 80 mg PO DIRECTED lisinopril-hydrochlorothiazide 20-12.5 mg tablet venlafaxine 150 mg capsule,extended release 24hr 150 mg PO DIRECTED Humulin R U-500 (Conc) Kwikpen 500 unit/mL (3 mL) insulin pen 230 unit SUBCUT DIRECTED doxycycline monohydrate 100 mg capsule 100 mg PO BID Qty: 20 0RF Follow-up/Referrals: Pantera,Neri Dior MD [Primary Care Provider] - Time of Disposition: 17:04 Quality [place] Coma Scale Eyes: Open Verbal: Oriented and Alert Motor: Follows Commands Fred Coma Total Score: 15
[2024-10-24 16:11] LABS: EDCOVIDSCREEN Negative (Negative); EDINFLUASCREEN Negative (Negative); EDINFLUBSCREEN Negative (Negative)
[2024-10-24 16:13] LABS: EDCOVIDSCREEN Negative (Negative); EDINFLUASCREEN Negative (Negative); EDINFLUBSCREEN Negative (Negative)
== END 2024-10-24 17:07 | disposition home or self-care (01) ==
PROVIDERS: Emergency Provider Registered Nurse; PCP Internal Medicine
DX: R05.9 Cough, unspecified (principal); Z20.822 Contact with and (suspected) exposure to COVID-19; C44.90 Unspecified malignant neoplasm of skin, unspecified; F17.210 Nicotine dependence, cigarettes, uncomplicated; E11.9 Type 2 diabetes mellitus without complications; Z79.4 Long term (current) use of insulin; I10 Essential (primary) hypertension; E78.5 Hyperlipidemia, unspecified
CPT/HCPCS: 71046; 87426; 87804; 99213; G0463